=== PATIENT | male | born 2005 | race Caucasian/White ===

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

== ENCOUNTER 2025-06-03 22:50 | Emergency (ER) | payer MEDICAID, OTHER ==
[~2025-06-03] VITALS: Ht 175.3 cm; Wt 86.4 kg
[2025-06-04 00:39] VITALS: BP 141/101; TEMP 98.1; O2SAT 97
== END 2025-06-04 00:48 | disposition home or self-care (01) ==
LOC: M ED 22:50
DX: L55.1 Sunburn of second degree (principal); Z88.2 Allergy status to sulfonamides; Z88.1 Allergy status to other antibiotic agents